=== PATIENT | male | born 1970 | race Caucasian/White ===

== ENCOUNTER 2017-06-03 20:28 | Inpatient (IN) | payer MEDICARE ==
[~2017-06-03] VITALS: Ht 182.9 cm; Wt 127.0 kg
[2017-06-03 21:07] LABS: HEMATOCRIT 45.1 % (42.0-54.0); HEMOGLOBIN 15.2 g/dL (13.5-17.5); MCH 29.2 pg (26.0-34.0); MCHC 33.7 g/dL (31.0-37.0); MCV 86.6 fL (80.0-100.0); MEAN PLATELET VOLUME 10.2 fL (7.4-10.4); PLATELET COUNT 249 10x3/uL (130-400); RBC 5.21 10x6/uL (4.20-6.10); RDW 13.6 % (11.5-14.5); WBC 22.6 10x3/uL (4.8-10.8)
[2017-06-03 21:20] LABS: ALBUMIN 3.7 g/dL (3.4-5.0); ALKALINE PHOSPHATASE 83 U/L (46-116); ALT (SGPT) 31 U/L (10-68); BILIRUBIN - TOTAL 1.61 mg/dL (0.2-1.3); CALC OSMOLALITY 272 mosm/kg (275-300); CARBON DIOXIDE 29.8 mmol/L (21.0-32.0); CHLORIDE - SERUM 97 mmol/L (98-107); GLUCOSE 173 mg/dL (74-106); POTASSIUM - SERUM 3.6 mmol/L (3.5-5.1); PROTEIN - SERUM 7.7 g/dL (6.4-8.2); SODIUM 135 mmol/L (136-145); UREA NITROGEN 10 mg/dL (7-18); eGFR NON AFRICAN AMERICAN 85 mL/min (90-120)
[2017-06-03 21:30] LABS: CHOL - HDL RATIO 2.9 ratio (2.3-4.9); CHOLESTEROL, TOTAL 186 mg/dL (0-200); CKMB 0.5 U/L (0.0-3.6); CREATINE KINASE 107 UL (21-232); HDL CHOLESTEROL 65 mg/dL (32-96); LDL CHOLESTEROL 113 mg/dL (0-100); LDL-HDL RATIO 1.7 ratio (1.5-3.5); TRIGLYCERIDE 40 mg/dL (30-200)
[2017-06-03 21:31] LABS: TROPONIN-I < 0.017 ng/mL (0.000-0.060)
[2017-06-03 21:45] LABS: LYMPHOCYTES 9 % (15-50); MONOCYTES 3 % (2-11); NEUTROPHILS 88 % (40-80); PLATELET ESTIMATE NORMAL
[2017-06-04] VITALS (7 sets, daily range): BP systolic 124–149; BP diastolic 67–89; Ht 182.9 cm; Wt 127.0 kg
[2017-06-04] MEDS ORDERED: OMEPRAZOLE20 M1 PO (01:08)
[2017-06-04] MEDS ORDERED: PROZAC10 MG PO (01:09)
[2017-06-04] MEDS ORDERED: HCTZ25 MG PO (01:11)
[2017-06-04] MEDS ORDERED: GABAPENTIN100 MG PO (01:12)
[2017-06-04] MEDS ORDERED: BACLOFEN10 MG PO (01:13)
[2017-06-04] MEDS ORDERED: IBUPROFEN200 MG PO (01:15)
--- NOTE | 2017-06-04 08:15 | NUR ---
PT RESTING IN BED WITH EYES OPEN CALL LIGHT IN REACH NO PROBLEMS WILL MONITER
--- NOTE | 2017-06-04 12:00 | NUR ---
AWAKE AND ALERT WITH RESPIRATIONS EVEN AND NON LABORED. PRODUCT PROMOTER RETAIL PET IN USE FOR PAIN. DENIES NEEDS AT THIS TIME. CALL LIGHT IN REACH, WILL CONTINUE WITH PLAN OF CARE.
--- NOTE | 2017-06-04 15:35 | NUR ---
PT RESTING IN BED WITH EYES OPEN CALL LIGHT IN REACH WILL MONITER
--- NOTE | 2017-06-04 17:34 | NUR ---
PT RESTING IN BED WITH EYES OPEN EATING SUPPER TOLERATING WELL WILL MONITER
[2017-06-05] VITALS: BP 130/71
--- NOTE | 2017-06-05 01:40 | NUR ---
BIOCHEMIST REPORT PT TEMP IS 101.7, CALL .
--- NOTE | 2017-06-05 01:40 | NUR ---
COOL WASHCLOTHES APPLIED TO PT'S FOREHEAD FOR FEVER.
--- NOTE | 2017-06-05 03:00 | NUR ---
PT RUNNING FEVER OF OVER 101 MD NOTIFIED AND TYLENOL GIVEN FOR TEMP. PT IS RESTING QUIET WITH NO DISTRESS NOTED. BED IS LOW, RAILS UP X'S 2 WITH THE CALL LIGHT AT HAND.
--- NOTE | 2017-06-05 03:04 | NUR ---
CHECK PT'S TEMP IS 99.0
[2017-06-05 04:00] VITALS: BP 134/82
[2017-06-05 05:53] LABS: ANION GAP 10.9 mmol/L (8-16); CALCIUM 8.5 mg/dL (8.5-10.1); CARBON DIOXIDE 28.2 mmol/L (21.0-32.0); POTASSIUM - SERUM 4.1 mmol/L (3.5-5.1)
[2017-06-05 06:03] LABS: CREATININE - SERUM 1.3 mg/dL (0.6-1.3)
[2017-06-05 06:07] LABS: BASOPHILS 0 % (0-2); EOSINOPHILS 0 % (0-7); HEMATOCRIT 40.8 % (42.0-54.0); HEMOGLOBIN 13.4 g/dL (13.5-17.5); IMMATURE GRANULOCYTES 0.4 % (0-5); LYMPHOCYTES 4.8 % (15-50); MCH 29.2 pg (26.0-34.0); MCHC 32.8 g/dL (31.0-37.0); MCV 88.9 fL (80.0-100.0); MEAN PLATELET VOLUME 10.6 fL (7.4-10.4); MONOCYTES 5.8 % (2-11); PLATELET COUNT 275 10x3/uL (130-400); RBC 4.59 10x6/uL (4.20-6.10); RDW 14.5 % (11.5-14.5); WBC 23.7 10x3/uL (4.8-10.8)
--- NOTE | 2017-06-05 07:00 | NUR ---
PT REC'D FROM SERENA IBANEZ. RESTING IN BED ON R SIDE. AAOX4. RATING CURRENT PAIN IN ABD 5/10. REMINDED PT OF DILAUDID LABORER GOLD LEAF AND HOW TO USE IT. NO QUESTIONS OR CONCERNS VOICED. GREGORY SILVAA, AT BEDSIDE OBTAINING VS. VSS. PT O2 SAT IS LOW WHEN IN SUPINE POSITION, BUT THEN INCREASES EASILY WHEN IN SIDE LYING POSITION. LUNG SOUNDS CLEAR AND EQUAL BILAT. PT DENIES HX OF SMOKING. ABD ROUND, BOWEL SOUNDS HYPOACTIVE X4 QUADRANTS, SLIGHT PAIN ON PALPATION. BED LOW, CALL LIGHT IN REACH, DENIES NEEDS. CPOC.
[2017-06-05 09:12] VITALS: BP 132/79
--- NOTE | 2017-06-05 09:50 | NUR ---
MORNING MEDS PASSED AT THIS TIME. FRESH CUP OF WATER PROVIDED. DR. COHEN AT BEDSIDE DISCUSSING POC. QUESTIONS AND CONCERNS ADRESSED BY [facility]. BED LOW, CALL LIGHT IN REACH, DENIES NEEDS. CPOC.
--- NOTE | 2017-06-05 10:30 | NUR ---
PT IN BED, WITH WASHCLOTH OVER FOREHEAD, PT DENIES ANY NEEDS AT THIS TIME, CALL LIGHT IN REACH, NAD NOTED.
[2017-06-05 10:35] LABS: AMYLASE - SERUM 12 U/L (25-115); LIPASE 60 U/L (73-393)
[2017-06-05 12:31] VITALS: BP 143/73
--- NOTE | 2017-06-05 12:40 | NUR ---
PT RESTING IN BED WITH EYES CLOSED. NO SIGNS OF DISTRESS. RESP EVEN AND UNLABORED. BED LOW, CALL LIGHT IN REACH, DENIES NEEDS. CPOC.
--- NOTE | 2017-06-05 14:55 | NUR ---
SCHEDULED MEDICATION ADMINISTERED AT THIS TIME. NEW BAG OF MAINTINANCE FLUIDS HUNG. VISITOR AT BEDSIDE. BED LOW, CALL LIGHT IN REACH, DENIES NEEDS. CPOC.
[2017-06-05 16:33] VITALS: BP 140/93
--- NOTE | 2017-06-05 17:25 | NUR ---
O2 SAT NOT RISING ABOVE 89% ON RA. PT STATES HE HAS A CPAP AT HOME, BUT DOES NOT USE IT LIKE HE SHOULD. I ASKED IF THERE WAS ANY WAY SOMEONE COULD BRING IT HERE SO THAT HE COULD HAVE IT TONIGHT, BUT PT STATED THAT HE DOESN'T EVEN KNOW IF THEY COULD GET TO IT TO BRING IT HERE. NC APPLIED AND 3L OF O2 ADMINISTERED. O2 SAT UP TO 96%. RESPIRATORY CALLED AND ASKED IF THERE WAS ANY WAY WE COULD GET A CPAP FOR THIS PT. KERA, RT, CALLED BACK AND STATED THEY NEED A DOCTORS ORDER AND NEED TO KNOW THE SETTINGS IN ORDER TO DO THAT. NC LEFT ON AT 3L FOR NOW. WILL CONTINUE TO MONITOR CLOSELY.
--- NOTE | 2017-06-05 19:37 | NUR ---
PT VERBALIZED NOT FEELING WELL AND CHEST FEELS TIGHT W/ ONSET OF COUGH. AUSCULATED BREATH SOUNDS, AUDIBLE WHEEZING W/ INHALATION. ASKED PT WHEN THIS STARTED HE STATED SEVERAL HOURS AGO BUT DID NOT WANT TO COMPLAIN. GAVE PT INCENTIVE SPIROMETER, EXPLAINED THE IMPORTANCE OF USING IT MUCH HE COULD IN AN HOUR TO HELP EXPAND LUNGS AND COUGH UP PHLEGM. BED IN LOW POSITION, CALL LIGHT WITHIN REACH, NO OTHER SIGNS OF DISTRESS AT THIS TIME
[2017-06-05 20:00] VITALS: BP 137/72
--- NOTE | 2017-06-05 22:48 | NUR ---
PT LYING IN BED ON LEFT SIDE, REQUESTED SNACKS BEFORE MIDNIGHT DUE TO NPO. PT VERBALIZED USING INCENTIVE SPIROMETER AND ABLE TO COUGH UP A LITTLE IF ANY. ENCOURAGED TO CONTINUE USING. BED IN LOW POSITION, CALL LIGHT IN REACH
[2017-06-06] VITALS: BP 104/64
--- NOTE | 2017-06-06 01:07 | NUR ---
PT IS LYING IN BED ON LEFT SIDE. EYES CLOSED, EVEN RISE AND FALL OF CHEST. BED IN LOW POSITION, CALL LIGHT WITHIN REACH.
--- NOTE | 2017-06-06 02:00 | NUR ---
PT IN BED WITH NO DISTRESS. RESPIRATIONS EVEN AND UNLABORED. SIDE RAILS X 2. BED IS LOW. CALL LIGHT IN REACH.
[2017-06-06 04:00] VITALS: BP 138/61
[2017-06-06 05:55] LABS: BASOPHILS 0.1 % (0-2); EOSINOPHILS 0.1 % (0-7); HEMOGLOBIN 12.5 g/dL (13.5-17.5); IMMATURE GRANULOCYTES 0.4 % (0-5); LYMPHOCYTES 7.3 % (15-50); MCH 28.4 pg (26.0-34.0); MCHC 32.1 g/dL (31.0-37.0); MCV 88.6 fL (80.0-100.0); MEAN PLATELET VOLUME 10.5 fL (7.4-10.4); MONOCYTES 5.8 % (2-11); NEUTROPHILS 86.3 % (40-80); PLATELET COUNT 254 10x3/uL (130-400); RDW 13.9 % (11.5-14.5)
[2017-06-06 06:17] LABS: ALBUMIN 2.4 g/dL (3.4-5.0); ALKALINE PHOSPHATASE 94 U/L (46-116); ALT (SGPT) 33 U/L (10-68); CARBON DIOXIDE 29.8 mmol/L (21.0-32.0); CHLORIDE - SERUM 102 mmol/L (98-107); GLUCOSE 122 mg/dL (74-106); POTASSIUM - SERUM 3.8 mmol/L (3.5-5.1); PROTEIN - SERUM 6.6 g/dL (6.4-8.2); SODIUM 138 mmol/L (136-145)
[2017-06-06 06:25] LABS: WBC 13.9 10x3/uL (4.8-10.8)
[2017-06-06 06:30] LABS: CALC OSMOLALITY 275 mosm/kg (275-300); CREATININE - SERUM 0.9 mg/dL (0.6-1.3); UREA NITROGEN 11 mg/dL (7-18); eGFR NON AFRICAN AMERICAN > 90 mL/min (90-120)
--- NOTE | 2017-06-06 07:36 | NUR ---
PATIENT SITTING UP ON THE SIDE OF HIS BED. PATIENT IS AWAKE, ALERT, AND ORIENTED X4. THEATRE MANAGER DILAUDID IN USE FOR PAIN CONTROL. PATIENT DENIES ANY NEEDS AT PRESENT TIME. PATIENT IS NPO. CALL LIGHT IN PATIENT'S REACH. WILL MONITOR.
[2017-06-06 09:13] VITALS: BP 149/91
[2017-06-06 13:03] VITALS: BP 121/62
[2017-06-06 20:00] VITALS: BP 146/100
--- NOTE | 2017-06-06 20:07 | NUR ---
PT LYING IN BED ON LEFT SIDE WITH TOWEL OVER HEAD, ASKED FOR GREEN JELLO, BED IN LOW POSITION, CALL LIGHT IN REACH, ADVISED WILL TRY MY BEST TO FIND DIFFERENT FLAVOR JELLO
[2017-06-07] VITALS: BP 141/79
[2017-06-07 04:03] VITALS: BP 141/70
[2017-06-07 05:48] LABS: BASOPHILS 0.1 % (0-2); EOSINOPHILS 0.1 % (0-7); HEMOGLOBIN 12.1 g/dL (13.5-17.5); IMMATURE GRANULOCYTES 0.3 % (0-5); LYMPHOCYTES 6.5 % (15-50); MCH 28.8 pg (26.0-34.0); MCHC 32.7 g/dL (31.0-37.0); MCV 88.1 fL (80.0-100.0); MEAN PLATELET VOLUME 10.3 fL (7.4-10.4); MONOCYTES 8.2 % (2-11); NEUTROPHILS 84.8 % (40-80); PLATELET COUNT 254 10x3/uL (130-400); RDW 13.8 % (11.5-14.5); WBC 13.2 10x3/uL (4.8-10.8)
[2017-06-07 06:03] LABS: CALC OSMOLALITY 274 mosm/kg (275-300); CALCIUM 7.9 mg/dL (8.5-10.1); CARBON DIOXIDE 29.6 mmol/L (21.0-32.0); CHLORIDE - SERUM 101 mmol/L (98-107); CREATININE - SERUM 0.9 mg/dL (0.6-1.3); GLUCOSE 127 mg/dL (74-106); POTASSIUM - SERUM 3.3 mmol/L (3.5-5.1); SODIUM 137 mmol/L (136-145); UREA NITROGEN 9 mg/dL (7-18); eGFR NON AFRICAN AMERICAN > 90 mL/min (90-120)
--- NOTE | 2017-06-07 07:14 | NUR ---
PATIENT RESTING QUIETLY ON HIS LEFT SIDE WITH HIS EYES CLOSED. SNORING NOTED. NO S/S OF DISTRESS NOTED. CALL LIGHT IN PATIENT'S REACH. PATIENT IS NPO. WILL MONITOR.
[2017-06-07 08:33] VITALS: BP 147/86
--- NOTE | 2017-06-07 10:02 | NUR ---
PATIENT TRANSFERRED VIA BED TO THE OPERATING ROOM.
--- NOTE | 2017-06-07 12:10 | NUR ---
PT REQUESTED GALLBLADDER AND SO HAD IT EXPLAINED TO HIM THAT HE COULD REQUEST IT FROM PATHOLOGY. Armando,
--- NOTE | 2017-06-07 13:25 | NUR ---
ANESTHESIA CONSULTED ABOUT O2 SAT AND ORDERED UPDRAFT
--- NOTE | 2017-06-07 13:46 | NUR ---
DR NINO NOTIFIED OF THE PATIENTS O2 SAT. DR NINO ORDERED DUONEB UPDRAFT THEN OZIMIZER TO KEEP O2 SAT >94
[2017-06-07 14:10] VITALS: BP 152/58
--- NOTE | 2017-06-07 14:10 | NUR ---
RECEIVED PATIENT BACK TO ROOM 2237 VIA BED FROM THE RECOVERY ROOM. PATIENT SLEEPY OFF AND ON. PATIENT DENIES ANY NAUSEA AT PRESENT TIME. PATIENT AWAKENS EASILY TO VERBAL STIMULI AND WHEN ASKED HIS PAIN LEVEL ON A SCALE FROM 0-10, PATIENT STATES HSI PAIN LEVEL IS A "95". LAP INCISIONS X4 BANDAIDS NOTED TO PATIENT'S ABDOMEN. TEMP 99.8 B/P 152/58 OXYGEN SATURATION IS 97% ON 7L PER AN OXYMIZER PULSE IS 113 AND RESPIRATIONS ARE 12. CALL LIGHT IN PATIENT'S REACH. WILL MONITOR PATIENT.
[2017-06-07 20:00] VITALS: BP 115/68
[2017-06-08] VITALS: BP 168/85
[2017-06-08 03:47] VITALS: BP 150/85
[2017-06-08 06:26] LABS: BASOPHILS 0.2 % (0-2); EOSINOPHILS 0.1 % (0-7); HEMATOCRIT 36.6 % (42.0-54.0); HEMOGLOBIN 11.9 g/dL (13.5-17.5); IMMATURE GRANULOCYTES 0.4 % (0-5); MCH 28.9 pg (26.0-34.0); MCHC 32.5 g/dL (31.0-37.0); MCV 88.8 fL (80.0-100.0); MEAN PLATELET VOLUME 10.2 fL (7.4-10.4); MONOCYTES 8.6 % (2-11); NEUTROPHILS 82.7 % (40-80); PLATELET COUNT 236 10x3/uL (130-400); RBC 4.12 10x6/uL (4.20-6.10); RDW 14.1 % (11.5-14.5); WBC 12.3 10x3/uL (4.8-10.8)
[2017-06-08 06:42] LABS: ALBUMIN 2.2 g/dL (3.4-5.0); ALKALINE PHOSPHATASE 114 U/L (46-116); ALT (SGPT) 36 U/L (10-68); BILIRUBIN - TOTAL 0.96 mg/dL (0.2-1.3); CALC OSMOLALITY 278 mosm/kg (275-300); CALCIUM 7.5 mg/dL (8.5-10.1); CARBON DIOXIDE 30.3 mmol/L (21.0-32.0); CHLORIDE - SERUM 100 mmol/L (98-107); GLUCOSE 125 mg/dL (74-106); POTASSIUM - SERUM 3.4 mmol/L (3.5-5.1); PROTEIN - SERUM 5.7 g/dL (6.4-8.2); SODIUM 140 mmol/L (136-145); UREA NITROGEN 9 mg/dL (7-18); eGFR NON AFRICAN AMERICAN 85 mL/min (90-120)
--- NOTE | 2017-06-08 06:48 | NUR ---
EYES CLOSED RESPIRATIONS WITH EASE AND UNLABORED.
--- NOTE | 2017-06-08 07:25 | NUR ---
PATEINT RECEIVED IN LEFT LATERAL POSITION ALERT AND RESTING QUIETLY. RESPIRATIONS EVEN AND UNLABORED. DENIES NEEDS. SIDE RAILS UP X2. BED IN LOW POSITION. CALL LIGHT IN REACH.
[2017-06-08 08:29] VITALS: BP 136/85
[2017-06-08] MEDS ORDERED: PERCOCET 10/3251 TA1 PO (09:10)
[2017-06-08] MEDS ORDERED: BACTRIM DS TABL1 TAB PO (09:10)
--- NOTE | 2017-06-08 09:11 | OP ---
PATIENT NAME: LOGAN WISDOM MEDICAL RECORD: [id number] :70 LOCATION:[id number] ADMISSION DATE:06/05/17 SURGEON: ALFREDO COHEN MD OPERATION DATE: 06/05/17 DATE OF OPERATION: 06/07/2017 PREOPERATIVE DIAGNOSES: 1. Acute calculous cholecystitis. 2. Gastroesophageal reflux disease. 3. Chronic low back pain. POSTOPERATIVE DIAGNOSES: 1. Acute calculous cholecystitis. 2. Gastroesophageal reflux disease. 3. Chronic low back pain. PROCEDURE: Laparoscopic cholecystectomy. SURGEON: Alfredo Cohen MD REPORT OF PROCEDURE: The patient's abdomen was prepped and draped in sterile fashion. A cutdown was made on the superior aspect of the umbilicus, 0 Vicryls were placed in the fascia bilaterally and the fascia was incised with a 15-blade. I then bluntly entered the peritoneal cavity and placed a 12-mm Ramiro port. Under direct visualization, a 5-mm trocar was placed in the epigastrium and 2 more 5-mm trocars were placed in the right subcostal region. The gallbladder was grasped and elevated. It was noted to be markedly inflamed and distended. We tried to access the gallbladder with a needle, but there was just a scant return of fluid. We were eventually able to dissect down to the cystic artery and cystic duct. These structures were clipped proximally and distally and ligated in standard fashion. The gallbladder was then pulled off the liver bed using electrocautery and placed into an Endo Catch bag. Any bleeding from the liver bed was then treated with electrocautery. The wound was irrigated out with normal saline and care was taken to make sure there was no sign of any further bleeding or bile leakage. At this point, the ports and insufflation were then removed and the gallbladder was taken out through the umbilicus. The umbilical fascia was closed with interrupted 0 Vicryls times 4. The wounds were irrigated out with normal saline and infused with 10 mL of 0.25% Marcaine with epinephrine. The skin incisions were all closed with subcutaneous 5-0 Monocryl and dressed appropriately. COMPLICATIONS: None. CONDITION: Stable. ANESTHESIA: General endotracheal and local. BLOOD LOSS: 100 mL. TRANSINT:[id number] Voice Confirmation ID: [id number] DOCUMENT ID: [id number] OPERATIVE REPORT [id number] LOGAN WISDOM CHRISTIAN MD at 0911 CC: [id number] DICTATION DATE: 06/07/17 1305 MODEL MAKER FIBERGLASS: 06/07/172019 ADM IN [facility] [address] [id number]
--- NOTE | 2017-06-08 09:14 | NUR ---
ALERT IN HIGH BRAMBILA POSITION. NO SIGNS OF DISTRESS NOTED. SCHEDULED MEDICATION ADMINISTERED WELL PRN PERCOCET. ANTICIPATING D/C HOME. DENIES NEEDS. SIDE RAILS UP X2. BED IN LOW POSITION. CALL LIGHT IN REACH.
--- NOTE | 2017-06-08 11:30 | NUR ---
D/C TEACHING AND WRITTEN PRESCRIPTIONS PROVIDED. STATES UNDERSTANDING. QUESTIONS ANSWERED. FAMILY PRESENT.
--- NOTE | 2017-06-08 11:40 | NUR ---
PATIENT D/C HOME WITH FAMILY. TRANSFERRED DOWNSTAIRS VIA WHEELCHAIR WITH VOLUNTEER.
== END 2017-06-08 11:51 | disposition home or self-care (01) | DRG 419 ==
LOC: D.ER 20:28 → D.MS 23:46 → OBSVTIME 23:46 → D.MS 06-05 11:35
PROVIDERS: Emergency Medicine; ADMIT Surgery
PROC: 0FT44ZZ Resection of Gallbladder, Percutaneous Endoscopic Approach (ICD-10-PCS; principal; 2017-06-07 10:45)
DX: K80.00 Calculus of gallbladder with acute cholecystitis without obstruction (principal); K21.9 Gastro-esophageal reflux disease without esophagitis; G89.29 Other chronic pain; M54.9 Dorsalgia, unspecified